=== PATIENT | male | born 1990 | race Caucasian/White ===

== ENCOUNTER 2017-04-05 22:54 | Emergency (ER) | payer OTHER ==
[~2017-04-05] VITALS: Ht 167.6 cm; Wt 110.1 kg
[~2017-04-05 22:54] MED LIST: ACET-1256 PO
[2017-04-05 23:00] VITALS: TEMP 36.9; Ht 167.6 cm; Wt 110.1 kg
[2017-04-05] MEDS ORDERED: CLOTRIMAZOLE 1% CR 15 GM TUBE EXT ONE (23:15)
[2017-04-05] MEDS ORDERED: CLOT-40 TOP (23:17)
--- NOTE | 2017-04-05 23:18 | EMERGENCY ROOM VISIT NOTE ---
History First contact with patient: 23:04 Chief Complaint: BITE Stated Complaint: SPIDER BITE ON R LEG History of Present Illness The patient is a 26 year old male who presents to the Emergency Room with complaints of a possible spider bite on his lower leg. The patient states that he first noticed redness and itching to the lower leg 6 days ago. He was seen by his primary care provider and given a steroid cream which she has been using. He states the symptoms are worsening. He denies actually seeing a spider bite him, but does state that he was told by his PCP that this could be a spider bite. He rates his discomfort a 2/10. He denies fevers/chills. Review of Systems A complete 10 point review of systems was reviewed with the patient with pertinent positives and negatives as per history of present illness. All else were negative. Past Medical/Surgical History Medical Problems: (1) Hyperlipidemia Family History Diabetes mellitus Hypertension Social History Smoking Status: Never Smoker Alcohol Use: none Marital Status: single Housing Status: lives with family Occupation Status: unemployed Current/Historical Medications Scheduled Clotrimazole (Topical) (Lotrimin Af), 1 APPLN TOP BID Physical Exam Vital Signs Date Time Temp Pulse Resp B/P (MAP) Pulse Ox O2 Delivery O2 Flow Rate FiO2 04/05/17 23:28 92 18 144/75 99 04/05/17 23:00 36.9 92 18 144/75 99 Room Air Physical Exam VITALS: Vitals are noted on the nurse's note and reviewed by myself. Vital signs stable. GENERAL: This is a 26-year-old male, in no acute distress, nondiaphoretic, well- developed well-nourished. SKIN: There is an erythematous, raised and slightly scaly lesion to the left lateral lower leg with some satellite lesions present. There is a similar rash to the left popliteal space. NEURO: Patient was alert and oriented to person place and time. Medical Decision & Procedures Medications Administered Medications (Trade) Dose Ordered Sig/Bettye Route Start Time Stop Time Status Last Admin Dose Admin Clotrimazole (Lotrimin 1% Crm) 1 appln NOW ONCE EXT 04/05/17 23:15 04/05/17 23:17 DC 04/05/17 23:26 45 APPLN Medical Decision Differential diagnosis includes abscess, cellulitis, contact dermatitis, tinea corporis, among others. Patient was evaluated as above. The rash is consistent with tinea. It has worsened with use of a steroid cream. The patient will be given clotrimazole cream and instructed to follow-up with his PCP. He verbalized understanding of my assessment and treatment plan and was discharged home in good condition. Medication Reconcilliation Current Medication List: was personally reviewed by me Blood Pressure Screening Patient's blood pressure: Elevated blood pressure Blood pressure disposition: Referred to PCP Impression Primary Impression: Tinea corporis Departure Information Dispostion Home / Self-Care Condition GOOD Prescriptions Clotrimazole (Topical) (LOTRIMIN AF) 1 % Cre 1 APPLN TOP BID for 28 Days, #24 GM 1 Refill Prov: Shakira Jasso ., R[place]ALL 04/05/17 Referrals Poornima Gordillo M.D. (MEDICAL) (PCP) Patient Instructions My [facility] Additional Instructions Apply the clotrimazole (Lotrimin) cream twice daily for 4 weeks. Stop using the cream that you were prescribed by your family doctor. Follow-up with Dr. Gordillo in 1-2 weeks for a recheck. Return here if you develop any worsening or new/concerning symptoms.
[2017-04-05 23:28] VITALS: BP 144/75; PULSE 92; O2SAT 99
== END 2017-04-05 23:31 | disposition home or self-care (01) ==
LOC: C.EDB 22:55 → C.EDA 23:31
DX: B35.4 Tinea corporis (principal); Z83.3 Family history of diabetes mellitus; Z82.49 Family history of ischemic heart disease and other diseases of the circulatory system

== ENCOUNTER 2017-12-14 20:09 | Emergency (ER) | payer OTHER ==
[~2017-12-14] VITALS: Ht 167.6 cm; Wt 107.2 kg
[~2017-12-14 20:09] MED LIST changes: -ACET-1256 PO; +CLOT-51 TOP
[2017-12-14 20:11] VITALS: TEMP 36.6; Ht 167.6 cm; Wt 107.2 kg
[2017-12-14] MEDS ORDERED: KETOROLAC TROMETHAMINE 30 MG/ML VIAL IV STA (20:25)
[2017-12-14] MEDS ORDERED: ACETAMINOPHEN 325 MG TAB PO STA (20:25)
--- NOTE | 2017-12-14 20:29 | EMERGENCY ROOM VISIT NOTE ---
History Report prepared by Charlotte: Isha Cheatham Under the Supervision of: Dr. Giuseppe Argueta M.D. 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 Negative cough, fevers, history of blood clots in his legs or lungs, history of asthma. He currently has chest pain which he describes as sharp and notes his chest pain is worse when his heart is racing. The patient is a current chewing tobacco user and a former smoker. He states he has had an episode like this in 2017. The patient is accompanied by his parents who state that the patient had a heart monitor but it kept falling off. 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 Review of Systems See HPI for pertinent positives and negatives. A total of ten systems were reviewed and were otherwise negative. Past Medical & Surgical Medical Problems: (1) Hyperlipidemia Family History Diabetes mellitus Hypertension Social History Smoking Status: Former Smoker Smokeless Tobacco Use: Yes Alcohol Use: none Marital Status: single Housing Status: lives with family Occupation Status: unemployed Current/Historical Medications No Active Prescriptions or Reported Meds Allergies Coded Allergies: Adhesives (Verified Allergy, Unknown, ., 04/05/17) Physical Exam Vital Signs Date Time Temp Pulse Resp B/P (MAP) Pulse Ox O2 Delivery O2 Flow Rate FiO2 12/14/17 22:51 85 20 138/79 98 12/14/17 21:50 73 18 127/61 99 Room Air 12/14/17 20:47 80 12/14/17 20:31 98 Room Air 12/14/17 20:30 98 Room Air 12/14/17 20:11 36.6 81 18 136/87 97 Room Air Physical Exam GENERAL: Awake, alert, well-appearing, NAD. Obese. HENT: Normocephalic, atraumatic. Poor dentition. EYES: Normal conjunctiva. Sclera non-icteric. PERRL. No anisocoria. NECK: Supple. No nuchal rigidity. FROM. RESPIRATORY: CTAB, no rhonchi, wheezing, crackles CARDIAC: RRR, no MRG ABDOMEN: Soft, NTND, BS+ MSK: Reproducible chest wall tenderness. no LE edema. No calf pain. Negative Homans sign NEURO: GCS 15, CN 2-12 intact, moves all 4s on command SKIN: No rash or jaundice noted. Medical Decision & Procedures ER Provider Diagnostic Interpretation: Radiology results as stated below per my review and radiologist interpretation: CHEST ONE VIEW PORTABLE CLINICAL HISTORY: CHEST PAIN dyspnea COMPARISON STUDY: No previous studies for comparison. FINDINGS: The bones soft tissues and hemidiaphragms are normal. The cardiomediastinal silhouette is normal. The lungs are clear. The pulmonary vasculature is normal. IMPRESSION: Negative chest. The above report was generated using voice recognition software. It may contain grammatical, syntax or spelling errors. Electronically signed by: Odin Arceo M.D. 12/14/2017 9:00 PM (CHEST FOR PE) ANGIO WITH CT DOSE: 702.73 mGy.cm HISTORY: Chest pain dyspnea TECHNIQUE: Multiaxial CT images of the chest were performed following the intravenous administration of contrast to evaluate the pulmonary arteries. Maximal intensity projection images were also obtained. A dose lowering technique was utilized adhering to the principles of ALARA. COMPARISON STUDY: None. FINDINGS: There is a normal caliber thoracic aorta with no evidence for dissection. There is no evidence for pulmonary embolus. No pleural effusions. No pneumothorax. The liver and spleen are unremarkable. No mediastinal or hilar lymphadenopathy. The central airways are patent. The lungs demonstrate mild nonspecific interstitial prominence bilaterally. There are several small reactive nodes involving the hilar and mediastinal regions. These do not exceed 1 cm. IMPRESSION: 1. No evidence for pulmonary embolus. . 2. Mild mid and lower lung interstitial prominence bilaterally considered nonspecific, although an interstitial pneumonitis should be considered. The above report was generated using voice recognition software. It may contain grammatical, syntax or spelling errors. Electronically signed by: Odin Arceo M.D. 12/14/2017 9:45 PM Laboratory Results 12/14/17 20:25 Red Blood Count 5.28, Mean Corpuscular Volume 81.4, Mean Corpuscular Hemoglobin 27.5, Mean Corpuscular Hemoglobin Concent 33.7, Mean Platelet Volume 10.2, Neutrophils (%) (Auto) 54.6, Lymphocytes (%) (Auto) 26.9, Monocytes (%) (Auto) 6.9, Eosinophils (%) (Auto) 10.7, Basophils (%) (Auto) 0.7, Neutrophils # (Auto ) 4.41, Lymphocytes # (Auto) 2.18, Monocytes # (Auto) 0.56, Eosinophils # (Auto ) 0.87, Basophils # (Auto) 0.06 12/14/17 20:25 Test 12/14/17 20:25 White Blood Count 8.10 K/uL (4.8-10.8) Red Blood Count 5.28 M/uL (4.7-6.1) Hemoglobin 14.5 g/dL (14.0-18.0) Hematocrit 43.0 % (42-52) Mean Corpuscular Volume 81.4 fL (80-100) Mean Corpuscular Hemoglobin 27.5 pg (25-34) Mean Corpuscular Hemoglobin Concent 33.7 g/dl (32-36) Platelet Count 216 K/uL (130-400) Mean Platelet Volume 10.2 fL (7.4-10.4) Neutrophils (%) (Auto) 54.6 % Lymphocytes (%) (Auto) 26.9 % Monocytes (%) (Auto) 6.9 % Eosinophils (%) (Auto) 10.7 % Basophils (%) (Auto) 0.7 % Neutrophils # (Auto) 4.41 K/uL (1.4-6.5) Lymphocytes # (Auto) 2.18 K/uL (1.2-3.4) Monocytes # (Auto) 0.56 K/uL (0.11-0.59) Eosinophils # (Auto) 0.87 K/uL (0-0.5) Basophils # (Auto) 0.06 K/uL (0-0.2) RDW Standard Deviation 38.1 fL (36.4-46.3) RDW Coefficient of Variation 12.7 % (11.5-14.5) Immature Granulocyte % (Auto) 0.2 % Immature Granulocyte # (Auto) 0.02 K/uL (0.00-0.02) Prothrombin Time 10.2 SECONDS (9.0-12.0) Prothromb Time International Ratio 1.0 (0.9-1.1) Activated Partial Thromboplast Time 26.3 SECONDS (21.0-31.0) Partial Thromboplastin Ratio 1.0 D-Dimer 1700 ug/L FEU (0-500) Anion Gap 6.0 mmol/L (3-11) Est Creatinine Clear Calc Drug Dose 136.7 ml/min Estimated GFR () 129.2 Estimated GFR (Non- 111.5 BUN/Creatinine Ratio 17.1 (10-20) Calcium Level 8.5 mg/dl (8.5-10.1) Total Bilirubin 0.6 mg/dl (0.2-1) Direct Bilirubin 0.1 mg/dl (0-0.2) Aspartate Amino Transf (AST/SGOT) 17 U/L (15-37) Alanine Aminotransferase (ALT/SGPT) 34 U/L (12-78) Alkaline Phosphatase 64 U/L (45-117) Troponin I < 0.015 ng/ml (0-0.045) Pro-B-Type Natriuretic Peptide 139 pg/ml (0-450) Total Protein 6.6 gm/dl (6.4-8.2) Albumin 3.8 gm/dl (3.4-5.0) Lipase 130 U/L (73-393) Laboratory results reviewed by me Medications Administered Medications (Trade) Dose Ordered Sig/Bettye Route Start Time Stop Time Status Last Admin Dose Admin Ketorolac Tromethamine (Toradol Inj) 30 mg NOW STAT IV 12/14/17 20:25 12/14/17 20:26 DC 12/14/17 20:35 30 MG Acetaminophen (Tylenol Tab) 650 mg NOW STAT PO 12/14/17 20:25 12/14/17 20:26 DC 12/14/17 20:35 650 MG ECG Per My Interpretation Indication: chest pain Rate (beats per minute): 75 Rhythm: normal sinus Findings: T-wave inversion (Lead III), other (short NV interval, normal axis, no STS changes) ED Course 2019: The patient was evaluated in room A12. A complete history and physical exam was performed. 2210: I reevaluated the patient. Discussed results and discharge instructions: He verbalized understanding and agreement. The patient is ready for discharge. 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 Negative cough, fevers, history of blood clots in his legs or lungs, history of asthma. Nursing notes reviewed. Ancillary studies and prior records reviewed. Differential diagnosis: Etiologies such as cardiac ischemia, aortic dissection, pulmonary embolism, pneumonia, pneumothorax, musculoskeletal, infections, pericarditis, myocarditis , esophageal rupture, gastrointestinal, as well as others were entertained. Patient was seen and evaluated the bedside. The patient was complaining some chest pain shortness of breath with substernal and would radiate to his knees. Patient denies any exertional symptoms. Patient was supposed to be wearing a Holter monitor but they were having difficulty with having it stick to the chest. The patient did have blood work completed, EKG, troponin, chest x-ray, and d-dimer. The patient was also treated symptomatically with Toradol. Patient blood work fairly unremarkable. EKG did show single T-wave inversion in the inferior leads and a short NV but no ischemic changes. No overt arrhythmia noted. Patient's chest x-ray was clear. Patient's date d-dimer was elevated. Patient did have a CT PE protocol performed. Patient CT negative for PE. Patient is a heart score less than 4. The patient may have an element of bronchitis. Patient was counseled on tobacco cessation. Patient was given strict follow-up, discharge, and return precautions. All questions were answered. Patient was deemed suitable for outpatient follow-up at this time. Patient agreed with the plan of care and was safely discharged home. Medication Reconcilliation Current Medication List: was personally reviewed by me Blood Pressure Screening Patient's blood pressure: Normal blood pressure Blood pressure disposition: Did not require urgent referral Impression Primary Impression: Non-cardiac chest pain Additional Impressions: Bronchitis Encounter for tobacco use cessation counseling Scribe Attestation The scribe's documentation has been prepared under my direction and personally reviewed by me in its entirety. I confirm that the note above accurately reflects all work, treatment, procedures, and medical decision making performed by me. Departure Information Dispostion Home / Self-Care Prescriptions No Active Prescriptions or Reported Meds Referrals Poornima Gordillo M.D. (MEDICAL) (PCP) Forms HOME CARE DOCUMENTATION FORM, IMPORTANT VISIT INFORMATION Patient Instructions Bronchitis Acute [place], My [facility] Additional Instructions Please return to the emergency department if you have worsening or recurrent symptoms not amenable to at-home treatment. Please call for a follow-up appointment with her primary care physician. Please take your medications as prescribed. If you have other concerns and/or complaints please feel free to also call your primary care physician's office or return the ED for further evaluation, management, and treatment. You were found to have an elevated blood pressure today (>120 sytolic or >90 diastolic). Per medicare guidelines, you need to follow up with this blood pressure screening with your Primary Care Physician (PCP). For a new PCP call [phone]. You received narcotic or benzodiazepene medication while in the emergency room today. This is an addictive medication that may cause drowziness as well as constipation. Do not drive, operate heavy machinery, or drink alcohol under the influence of this medication. You may take 600 mg Ibuprofen every 6 hours as needed for pain/fever with food unless told by your physician not to take NSAIDs. You may take tylenol 650 mg every 6 hours as needed for pain/fever unless told by your physician to not take it or have liver problems. You may take motrin and tylenol separately or at the same time. Take your medications as prescribed. Please use the inhalers 2 puffs every 4 hours the first day, then 2 puffs every 6 hours second day, 1 puff every 4 hours the third day, and then 1 puff every 6 hours the fourth day. You may then use as needed. Make sure to use your inhaler with a spacer when you use it. You have been examined and treated today on an emergency basis only. This is not a substitute for, or an effort to provide, complete comprehensive medical care. It is impossible to recognize and treat all injuries or illnesses in a single emergency department visit. It is therefore important that you follow up closely with [facility], your PCP, and/or your specialist(s). Call as soon as possible for an appointment. Thank you for your time and consideration. I look forward to speaking with you again soon. Please don't hesitate to call us if you have any questions. Problem Qualifiers
[2017-12-14 20:31] VITALS: O2SAT 98
[2017-12-14 20:35] LABS: BASO % 0.7 %; BASO ABS # 0.06 K/uL (0-0.2); EOS % 10.7 %; EOS ABS # 0.87 K/uL (0-0.5); HEMOGLOBIN 14.5 g/dL (14.0-18.0); IG# 0.02 K/uL (0.00-0.02); LYMPH % 26.9 %; LYMPH ABS # 2.18 K/uL (1.2-3.4); MEAN CELL VOLUME 81.4 fL (80-100); MEAN CORPUSCULAR HEMOGLOBIN 27.5 pg (25-34); MEAN CORPUSCULAR HGB CONC 33.7 g/dl (32-36); MEAN PLATELET VOLUME 10.2 fL (7.4-10.4); MONO % 6.9 %; MONO ABS # 0.56 K/uL (0.11-0.59); NEUT % 54.6 %; NEUT ABS # 4.41 K/uL (1.4-6.5); PLATELET COUNT 216 K/uL (130-400); RED CELL DISTRIBUTION WIDTH CV 12.7 % (11.5-14.5); RED CELL DISTRIBUTION WIDTH SD 38.1 fL (36.4-46.3)
[2017-12-14 20:57] LABS: PTT PATIENT 26.3 SECONDS (21.0-31.0)
[2017-12-14 20:58] LABS: ALBUMIN 3.8 gm/dl (3.4-5.0); ALKALINE PHOSPHATASE 64 U/L (45-117); ALT/SGPT 34 U/L (12-78); AST/SGOT 17 U/L (15-37); BLOOD UREA NITROGEN 16 mg/dl (7-18); CALCIUM 8.5 mg/dl (8.5-10.1); CARBON DIOXIDE 27 mmol/L (21-32); CREATININE 0.94 mg/dl (0.60-1.40); GLUCOSE 93 mg/dl (70-99); LIPASE 130 U/L (73-393); SODIUM 141 mmol/L (136-145); TOTAL PROTEIN 6.6 gm/dl (6.4-8.2)
--- NOTE | 2017-12-14 21:02 | DIAGNOSTIC IMAGING REPORT ---
CHEST ONE VIEW PORTABLE CLINICAL HISTORY: CHEST PAIN dyspnea COMPARISON STUDY: No previous studies for comparison. FINDINGS: The bones soft tissues and hemidiaphragms are normal. The cardiomediastinal silhouette is normal. The lungs are clear. The pulmonary vasculature is normal. IMPRESSION: Negative chest. The above report was generated using voice recognition software. It may contain grammatical, syntax or spelling errors. Electronically signed by: Odin Arceo M.D. 12/14/2017 9:00 PM Dictated Date/Time: 12/14/2017 9:00 PM
[2017-12-14] MEDS ORDERED: OPTIRAY 320 IV PRN (21:30)
--- NOTE | 2017-12-14 21:46 | DIAGNOSTIC IMAGING REPORT ---
(CHEST FOR PE) ANGIO WITH CT DOSE: 702.73 mGy.cm HISTORY: Chest pain dyspnea TECHNIQUE: Multiaxial CT images of the chest were performed following the intravenous administration of contrast to evaluate the pulmonary arteries. Maximal intensity projection images were also obtained. A dose lowering technique was utilized adhering to the principles of ALARA. COMPARISON STUDY: None. FINDINGS: There is a normal caliber thoracic aorta with no evidence for dissection. There is no evidence for pulmonary embolus. No pleural effusions. No pneumothorax. The liver and spleen are unremarkable. No mediastinal or hilar lymphadenopathy. The central airways are patent. The lungs demonstrate mild nonspecific interstitial prominence bilaterally. There are several small reactive nodes involving the hilar and mediastinal regions. These do not exceed 1 cm. IMPRESSION: 1. No evidence for pulmonary embolus. . 2. Mild mid and lower lung interstitial prominence bilaterally considered nonspecific, although an interstitial pneumonitis should be considered. The above report was generated using voice recognition software. It may contain grammatical, syntax or spelling errors. Electronically signed by: Odin Arceo M.D. 12/14/2017 9:45 PM Dictated Date/Time: 12/14/2017 9:43 PM
[2017-12-14 22:51] VITALS: BP 138/79; PULSE 85; O2SAT 98
== END 2017-12-14 22:53 | disposition home or self-care (01) ==
LOC: C.EDB 20:10 → C.EDA 22:53
DX: R07.89 Other chest pain (principal); J40 Bronchitis, not specified as acute or chronic; R79.1 Abnormal coagulation profile; R94.31 Abnormal electrocardiogram [ECG] [EKG]; Z87.891 Personal history of nicotine dependence; Z91.048 Other nonmedicinal substance allergy status; Z82.49 Family history of ischemic heart disease and other diseases of the circulatory system